=== PATIENT | male | born 1990 ===

== ENCOUNTER 2017-02-11 16:21 | Inpatient (IN) | payer MEDICAID ==
[~2017-02-11] VITALS: Ht 175.3 cm; Wt 48.1 kg
[2017-02-11 18:00] VITALS: BP 137/75
[2017-02-11] MEDS ORDERED: IBUPROFEN 400 MG TABLET PO PRN (20:15)
[2017-02-11] MEDS: RisperiDONE 2 MG TABLET PO SCH (20:16)
[2017-02-12] MEDS: ZOLPIDEM TARTRATE 10 MG TABLET PO PRN (00:31)
[2017-02-12] MEDS ORDERED: DiphenhydrAMINE HCL 50 MG/ML VIAL IM ONE (09:00)
[2017-02-12] MEDS ORDERED: HALOPERIDOL LACTATE 5 MG/ML VIAL IM ONE (09:00)
[2017-02-12] MEDS ORDERED: LORazepam 2 MG/ML VIAL IM ONE (09:00)
[2017-02-12] MEDS: LORazepam 2 MG TABLET PO PRN (18:23)
[2017-02-12] MEDS: HALOPERIDOL 5 MG TABLET PO PRN (18:23)
[2017-02-12 18:35] VITALS: BP 120/56
[2017-02-12] MEDS: RisperiDONE 2 MG TABLET PO SCH (21:00)
[2017-02-13] MEDS: ZOLPIDEM TARTRATE 10 MG TABLET PO PRN ×2 (02:14→20:44)
[2017-02-13 08:00] VITALS: BP 103/60
[2017-02-13] MEDS: HALOPERIDOL 5 MG TABLET PO PRN ×2 (08:11→13:57)
[2017-02-13] MEDS: LORazepam 2 MG TABLET PO PRN ×2 (08:11→13:57)
[2017-02-13] MEDS: RisperiDONE 2 MG TABLET PO SCH (20:44)
[2017-02-14] MEDS ORDERED: PROMETHAZINE HCL 25 MG/ML VIAL IM PRN (00:15)
[2017-02-14 01:27] VITALS: BP 118/73
[2017-02-14] MEDS: HALOPERIDOL 5 MG TABLET PO PRN (08:02)
[2017-02-14] MEDS: LORazepam 2 MG TABLET PO PRN (08:02)
[2017-02-14] MEDS ORDERED: RISP2 PO (11:43)
== END 2017-02-14 12:02 | disposition home or self-care (01) | DRG 750 ==
LOC: 3EC 18:00
PROVIDERS: ADMIT Psychiatry & Neurology Psychiatry; ATTEND Psychiatry & Neurology Child & Adolescent Psychiatry
DX: F20.0 Paranoid schizophrenia (principal); Z78.1 Physical restraint status; F32.9 Major depressive disorder, single episode, unspecified; F10.10 Alcohol abuse, uncomplicated; F19.10 Other psychoactive substance abuse, uncomplicated; Z71.51 Drug abuse counseling and surveillance of drug abuser; Z71.41 Alcohol abuse counseling and surveillance of alcoholic
CPT/HCPCS: J1200; J1630; J2060; J2550

== ENCOUNTER 2017-05-13 23:30 | Inpatient (IN) | payer MEDICAID ==
[~2017-05-13] VITALS: Ht 175.3 cm; Wt 49.3 kg
[~2017-05-13 23:30] MED LIST: RISP2 PO
[2017-05-14] MEDS ORDERED: ZOLPIDEM TARTRATE 10 MG TABLET PO PRN (03:15)
[2017-05-14] MEDS ORDERED: OLANZapine 5 MG RAPDIS TABLET PO PRN (03:15)
[2017-05-14] MEDS ORDERED: LORazepam 1 MG TABLET PO PRN (03:15)
[2017-05-14] MEDS ORDERED: INFLUENZA VIRUS VACCINE QVS 2017-18 (3YR+)/PF 60 MCG/0.5 ML SYRINGE IM ONE (04:00)
[2017-05-14 04:01] VITALS: BP 115/62
[2017-05-14 08:20] VITALS: BP 121/62
[2017-05-14] MEDS ORDERED: RisperiDONE 3 MG TABLET PO SCH (09:00)
[2017-05-14] MEDS ORDERED: GuaiFENesin/D-METHORPHAN [SUGAR-FREE] 200-20MG/10 ML SYRUP UDCUP PO PRN (11:15)
[2017-05-14] MEDS ORDERED: LOPERAMIDE HCL 2 MG CAPSULE PO PRN (11:15)
[2017-05-14] MEDS ORDERED: ACETAMINOPHEN 325 MG TABLET PO PRN (11:15)
[2017-05-14] MEDS ORDERED: PROMETHAZINE HCL 25 MG TABLET PO PRN (11:15)
[2017-05-14] MEDS ORDERED: MAG HYDROX/AL HYDROX/SIMETH ES 30 ML SUSPENSION UDCUP PO PRN (11:15)
[2017-05-14] MEDS ORDERED: TUBERCULIN, PURIFIED PROTEIN DERIVATIVE 5 TU/0.1 ML SYG ID ONE (11:15)
[2017-05-14] MEDS ORDERED: MAGNESIUM HYDROXIDE SUSPENSION 30 ML UDCUP PO PRN (11:15)
[2017-05-14] MEDS ORDERED: HydrOXYzine PAMOATE 50 MG CAPSULE PO PRN (11:15)
[2017-05-14] MEDS ORDERED: MV-M1TAB2 PO (12:33)
[2017-05-14] MEDS ORDERED: FOLI1 PO (12:33)
[2017-05-14] MEDS ORDERED: THIA100 PO (12:33)
[2017-05-14] MEDS ORDERED: FLUO-191 PO (12:33)
[2017-05-14] MEDS ORDERED: NALT50TA6 PO (12:33)
[2017-05-14] MEDS ORDERED: OLAN10TA6 PO (12:33)
[2017-05-14] MEDS ORDERED: THIAMINE HCL 100 MG TABLET PO SCH (17:00)
[2017-05-14] MEDS ORDERED: OLANZapine 10 MG RAPDIS TABLET PO SCH (21:00)
[2017-05-15] MEDS ORDERED: MULTIVITAMINS WITH MINERALS, THERAPEUTIC TABLET PO SCH (09:00)
[2017-05-15] MEDS ORDERED: FOLIC ACID 1 MG TABLET PO SCH (09:00)
[2017-05-15] MEDS ORDERED: NALTREXONE HCL 50 MG TABLET PO SCH (09:00)
[2017-05-15] MEDS ORDERED: FLUoxetine HCL 20 MG CAPSULE PO SCH (09:00)
== END 2017-05-14 13:15 | disposition left against medical advice (07) | DRG 750 ==
LOC: B2S 05-14 03:20
PROVIDERS: ADMIT Psychiatry & Neurology Psychiatry; ATTEND Psychiatry & Neurology Psychiatry
DX: F25.0 Schizoaffective disorder, bipolar type (principal); R45.851 Suicidal ideations; Z91.19 Patient's noncompliance with other medical treatment and regimen; F17.210 Nicotine dependence, cigarettes, uncomplicated; F12.10 Cannabis abuse, uncomplicated
CPT/HCPCS: 99285

== ENCOUNTER 2018-05-01 21:20 | Inpatient (IN) | payer MEDICAID ==
[~2018-05-01] VITALS: Ht 175.3 cm; Wt 52.2 kg
[2018-05-01] MEDS ORDERED: ZOLPIDEM TARTRATE 10 MG TABLET PO PRN (22:45)
[2018-05-01] MEDS ORDERED: HALOPERIDOL 5 MG TABLET PO PRN (22:45)
[2018-05-02 00:46] VITALS: BP 111/67
[2018-05-02] MEDS ORDERED: PETROLATUM,WHITE 71 GM JELLY TP PRN (05:45)
[2018-05-02] MEDS ORDERED: LOPERAMIDE HCL 2 MG CAPSULE PO PRN (05:45)
[2018-05-02] MEDS ORDERED: CloNIDine HCL 0.1 MG TABLET PO PRN (05:45)
[2018-05-02] MEDS ORDERED: ONDANSETRON HCL 4 MG TABLET PO PRN (05:45)
[2018-05-02] MEDS ORDERED: MAG HYDROX/AL HYDROX/SIMETH ES 30 ML SUSPENSION UDCUP PO PRN (05:45)
[2018-05-02] MEDS ORDERED: ACETAMINOPHEN 325 MG TABLET PO PRN (05:45)
[2018-05-02] MEDS ORDERED: NICOTINE 14 MG/24 HOUR PATCH TD PRN (05:45)
[2018-05-02] MEDS ORDERED: MAGNESIUM HYDROXIDE SUSPENSION 30 ML UDCUP PO PRN (05:45)
[2018-05-02] MEDS ORDERED: GuaiFENesin/D-METHORPHAN [SUGAR-FREE] 200-20MG/10 ML SYRUP UDCUP PO PRN (05:45)
[2018-05-02] MEDS ORDERED: ALBUTEROL SULFATE HFA 90 MCG/PUFF 8 GM INHALER IH PRN (05:45)
[2018-05-02] MEDS ORDERED: IBUPROFEN 400 MG TABLET PO PRN (05:45)
[2018-05-02] MEDS ORDERED: DOCUSATE SODIUM 100 MG CAPSULE PO PRN (05:45)
[2018-05-02 08:36] VITALS: BP 118/72
[2018-05-02] MEDS: RisperiDONE 2 MG TABLET PO SCH ×2 (12:19→20:48)
[2018-05-02 16:00] VITALS: BP 113/61
[2018-05-03 00:34] VITALS: BP 113/75
[2018-05-03] MEDS: RisperiDONE 2 MG TABLET PO SCH ×2 (08:33→20:52)
[2018-05-03 08:34] VITALS: BP 114/62
[2018-05-03] MEDS: LORazepam 2 MG TABLET PO PRN (16:29)
[2018-05-03 16:47] VITALS: BP 112/64
[2018-05-04 06:11] VITALS: BP 115/82
[2018-05-04] MEDS: RisperiDONE 2 MG TABLET PO SCH (08:31)
[2018-05-04] MEDS: LORazepam 2 MG TABLET PO PRN (08:38)
[2018-05-04 08:41] LABS: BASOPHILS % (AUTO) 0.5 % (0.0-2.0); EOSINOPHILS % (AUTO) 0.9 % (1.0-6.0); LYMPHOCYTES # (AUTO) 1.8 K/uL (1.0-4.8); LYMPHOCYTES % (AUTO) 44.4 % (22.0-44.0); MEAN CORPUSCULAR HEMOGLOBIN 32.1 pg (26.0-34.0); MEAN CORPUSCULAR VOLUME 92 fL (80-100); MONOCYTES # (AUTO) 0.3 K/uL (0.1-1.0); MONOCYTES % (AUTO) 8.3 % (2.0-9.0); NEUTROPHILS # (AUTO) 1.9 K/uL (1.8-7.7); NEUTROPHILS % (AUTO) 45.9 % (40.0-70.0); PLATELET COUNT (AUTO) 235 K/uL (150-450); RED BLOOD CELL COUNT(AUTO) 4.68 MIL/uL (4.50-5.90); RED CELL DISTRIBUTION WIDTH 13.5 % (11.5-14.5)
[2018-05-04 08:48] LABS: HEMOGLOBIN A1C 5.5 % (4.5-6.2)
[2018-05-04 09:02] VITALS: BP 125/62
[2018-05-04 09:23] LABS: ALANINE AMINOTRANSFERASE 35 U/L (12-78); ALBUMIN 3.9 g/dL (3.4-5.0); ALKALINE PHOSPHATASE 60 U/L (46-116); ANION GAP 9 mmol/L (8-16); ASPARTATE AMINOTRANSFERASE 24 U/L (15-37); BILIRUBIN,TOTAL 0.4 mg/dL (0.1-1.0); CARBON DIOXIDE 26 mmol/L (22-29); CHLORIDE 104 mmol/L (98-107); CHOL/HDL RATIO 1.6 (4.2-7.3); CHOLESTEROL 125 mg/dL (131-200); CREATININE 0.61 mg/dL (0.60-1.30); FREE T4 (FREE THYROXINE) 0.97 ng/dL (0.76-1.46); GLOMERULAR FILTR. RATE CALC > 60 mL/min (>60); GLUCOSE,RANDOM 96 mg/dL (70-110); HDL CHOLESTEROL 78 mg/dL (40-60); LDL CHOL (CALC.) 41 mg/dL (0-130); POTASSIUM 4.3 mmol/L (3.5-5.1); SODIUM SERUM 139 mmol/L (136-145); THYROID STIMULATING HORMONE 1.38 uIU/mL (0.36-3.74); TOTAL PROTEIN, SERUM 7.1 g/dL (6.4-8.2); TRIGLYCERIDES 29 mg/dL (15-150); UREA NITROGEN, BLOOD 12 mg/dL (7-18)
[2018-05-04] MEDS ORDERED: RISP2 PO (12:02)
== END 2018-05-04 13:50 | disposition home or self-care (01) | DRG 750 ==
LOC: B2S 22:38
DX: F25.1 Schizoaffective disorder, depressive type (principal); R45.851 Suicidal ideations; Z59.0 Homelessness; D72.819 Decreased white blood cell count, unspecified; F10.10 Alcohol abuse, uncomplicated; F41.9 Anxiety disorder, unspecified; G47.00 Insomnia, unspecified; F12.10 Cannabis abuse, uncomplicated; Z79.899 Other long term (current) drug therapy; Z91.5 Personal history of self-harm
CPT/HCPCS: 83036; 84439; 84443

== ENCOUNTER 2018-12-28 22:15 | Inpatient (IN) | payer SELFPAY ==
[~2018-12-28] VITALS: Ht 172.7 cm; Wt 46.7 kg
[2018-12-28 22:43] LABS: BASOPHILS % (AUTO) 0.5 % (0.0-2.0); EOSINOPHILS % (AUTO) 0.8 % (1.0-6.0); HEMATOCRIT 39.5 % (41-53); HEMOGLOBIN 13.6 g/dL (13.5-17.5); LYMPHOCYTES # (AUTO) 2.9 K/uL (1.0-4.8); LYMPHOCYTES % (AUTO) 43.5 % (22.0-44.0); MEAN CORPUSCULAR HEMOGLOBIN 31.1 pg (26.0-34.0); MEAN CORPUSCULAR HGB CONC 34.3 G/dL (31.0-37.0); MEAN CORPUSCULAR VOLUME 91 fL (80-100); MONOCYTES # (AUTO) 0.7 K/uL (0.1-1.0); MONOCYTES % (AUTO) 10.3 % (2.0-9.0); NEUTROPHILS % (AUTO) 44.9 % (40.0-70.0); PLATELET COUNT (AUTO) 232 K/uL (150-450); RED BLOOD CELL COUNT(AUTO) 4.36 MIL/uL (4.50-5.90); RED CELL DISTRIBUTION WIDTH 13.3 % (11.5-14.5)
[2018-12-28 22:53] LABS: ANION GAP 8 mmol/L (8-16); CALCIUM, TOTAL 9.1 mg/dL (8.8-10.5); CARBON DIOXIDE 31 mmol/L (22-29); CHLORIDE 101 mmol/L (98-107); CREATININE 0.83 mg/dL (0.60-1.30); GLOMERULAR FILTR. RATE CALC > 60 mL/min (>60); GLUCOSE,RANDOM 104 mg/dL (70-110); POTASSIUM 3.5 mmol/L (3.5-5.1); SODIUM SERUM 140 mmol/L (136-145); UREA NITROGEN, BLOOD 11 mg/dL (7-18)
[2018-12-28 22:59] LABS: ALANINE AMINOTRANSFERASE 65 U/L (12-78); ALKALINE PHOSPHATASE 67 U/L (46-116); ASPARTATE AMINOTRANSFERASE 28 U/L (15-37); BILIRUBIN,TOTAL 0.8 mg/dL (0.1-1.0); TOTAL PROTEIN, SERUM 7.1 g/dL (6.4-8.2)
[2018-12-29] MEDS ORDERED: HALOPERIDOL 5 MG TABLET PO PRN (03:00)
[2018-12-29 12:05] VITALS: BP 108/77
[2018-12-29] MEDS ORDERED: IBUPROFEN 400 MG TABLET PO PRN (12:45)
[2018-12-29] MEDS ORDERED: ACETAMINOPHEN 325 MG TABLET PO PRN (12:45)
[2018-12-29] MEDS ORDERED: NICOTINE 14 MG/24 HOUR PATCH TD PRN (12:45)
[2018-12-29] MEDS ORDERED: MAGNESIUM HYDROXIDE SUSPENSION 30 ML UDCUP PO PRN (12:45)
[2018-12-29] MEDS ORDERED: ALBUTEROL SULFATE HFA 90 MCG/PUFF 8 GM INHALER IH PRN (12:45)
[2018-12-29] MEDS ORDERED: LOPERAMIDE HCL 2 MG CAPSULE PO PRN (12:45)
[2018-12-29] MEDS ORDERED: PETROLATUM,WHITE 28 GM JELLY TP PRN (12:45)
[2018-12-29] MEDS ORDERED: ONDANSETRON HCL 4 MG TABLET PO PRN (12:45)
[2018-12-29] MEDS ORDERED: MAG HYDROX/AL HYDROX/SIMETH ES 30 ML SUSPENSION UDCUP PO PRN (12:45)
[2018-12-29] MEDS ORDERED: CloNIDine HCL 0.1 MG TABLET PO PRN (12:45)
[2018-12-29] MEDS ORDERED: DOCUSATE SODIUM 100 MG CAPSULE PO PRN (12:45)
[2018-12-29] MEDS ORDERED: GuaiFENesin/D-METHORPHAN [SUGAR-FREE] 200-20MG/10 ML SYRUP UDCUP PO PRN (12:45)
[2018-12-29 16:35] VITALS: BP 109/60
[2018-12-29] MEDS: LORazepam 2 MG TABLET PO PRN (16:39)
[2018-12-29] MEDS: ZOLPIDEM TARTRATE 10 MG TABLET PO PRN (20:51)
[2018-12-30 06:05] VITALS: BP 107/63
[2018-12-30 07:55] LABS: BASOPHILS % (AUTO) 0.4 % (0.0-2.0); EOSINOPHILS % (AUTO) 2.8 % (1.0-6.0); HEMATOCRIT 37.1 % (41-53); HEMOGLOBIN 12.7 g/dL (13.5-17.5); LYMPHOCYTES # (AUTO) 2.2 K/uL (1.0-4.8); LYMPHOCYTES % (AUTO) 54.4 % (22.0-44.0); MEAN CORPUSCULAR HEMOGLOBIN 31.2 pg (26.0-34.0); MEAN CORPUSCULAR HGB CONC 34.3 G/dL (31.0-37.0); MEAN CORPUSCULAR VOLUME 91 fL (80-100); MONOCYTES # (AUTO) 0.5 K/uL (0.1-1.0); MONOCYTES % (AUTO) 13.3 % (2.0-9.0); NEUTROPHILS # (AUTO) 1.2 K/uL (1.8-7.7); NEUTROPHILS % (AUTO) 29.1 % (40.0-70.0); PLATELET COUNT (AUTO) 211 K/uL (150-450); RED BLOOD CELL COUNT(AUTO) 4.08 MIL/uL (4.50-5.90); RED CELL DISTRIBUTION WIDTH 13.4 % (11.5-14.5)
[2018-12-30 08:09] LABS: HEMOGLOBIN A1C 5.6 % (4.5-6.2)
[2018-12-30 08:43] LABS: ALANINE AMINOTRANSFERASE 54 U/L (12-78); ALBUMIN 3.5 g/dL (3.4-5.0); ALKALINE PHOSPHATASE 54 U/L (46-116); ANION GAP 6 mmol/L (8-16); ASPARTATE AMINOTRANSFERASE 27 U/L (15-37); BILIRUBIN,TOTAL 0.6 mg/dL (0.1-1.0); CARBON DIOXIDE 26 mmol/L (22-29); CHLORIDE 103 mmol/L (98-107); CREATININE 0.67 mg/dL (0.60-1.30); GLOMERULAR FILTR. RATE CALC > 60 mL/min (>60); GLUCOSE,RANDOM 93 mg/dL (70-110); POTASSIUM 4.3 mmol/L (3.5-5.1); SODIUM SERUM 135 mmol/L (136-145); TOTAL PROTEIN, SERUM 6.4 g/dL (6.4-8.2); UREA NITROGEN, BLOOD 9 mg/dL (7-18)
[2018-12-30 08:56] LABS: THYROID STIMULATING HORMONE 0.36 uIU/mL (0.36-3.74)
[2018-12-30 08:59] VITALS: BP 112/66
[2018-12-30] MEDS: LORazepam 2 MG TABLET PO PRN ×2 (12:35→20:42)
[2018-12-30 16:21] VITALS: BP 118/60
[2018-12-30 17:23] VITALS: BP 112/72
[2018-12-30] MEDS ORDERED: RisperiDONE 2 MG TABLET PO SCH (21:00)
[2018-12-30] MEDS: ZOLPIDEM TARTRATE 10 MG TABLET PO PRN (21:48)
[2018-12-31 00:30] VITALS: BP 91/61
[2018-12-31 09:14] VITALS: BP 111/63
[2018-12-31] MEDS ORDERED: RISP2 PO (09:14)
== END 2018-12-31 11:30 | disposition home or self-care (01) | DRG 885 ==
LOC: EMS 22:17 → B2S 12-29 06:32
PROVIDERS: ADMIT Psychiatry & Neurology Child & Adolescent Psychiatry; ATTEND Psychiatry & Neurology Child & Adolescent Psychiatry
DX: F20.9 Schizophrenia, unspecified (principal); R45.851 Suicidal ideations; F10.10 Alcohol abuse, uncomplicated; F17.200 Nicotine dependence, unspecified, uncomplicated; F41.9 Anxiety disorder, unspecified; F31.9 Bipolar disorder, unspecified; R00.0 Tachycardia, unspecified; F19.10 Other psychoactive substance abuse, uncomplicated; Z91.14 Patient's other noncompliance with medication regimen; Z71.6 Tobacco abuse counseling
CPT/HCPCS: 83036; 84436; 84439; 84443; G0480